=== PATIENT | male | born 1960 | race Hispanic/Latino ===

== ENCOUNTER 2020-12-23 18:50 | Emergency (ER) | payer BC ==
[~2020-12-23] VITALS: Ht 190.5 cm; Wt 88.5 kg
[2020-12-23] MEDS ORDERED: ACETAMINOPHEN 325 MG TAB PO ONE ×2 (19:45)
[2020-12-23] MEDS ORDERED: SODIUM CHLORIDE 0.9% 1000ML 1,000 ML IV ONE (19:45)
[2020-12-23] MEDS ORDERED: ACETAMINOPHEN 325 MG TAB ONE (19:50)
[2020-12-23] MEDS ORDERED: SODIUM CHLORIDE 0.9% 1000ML 1,000 ML ONE (19:55)
[2020-12-23 19:57] LABS: BASOPHILS % 0.3 % (0.0-1.0); HEMOGLOBIN 14.7 g/dL (14.0-18.0); LYMPHOCYTES # (AUTO) 0.7 (1.0-3.2); LYMPHOCYTES % 20.4 % (18.0-39.1); MEAN CORPUSCULAR HEMOGLOBIN 30.3 pg (28-32); MEAN CORPUSCULAR HGB CONC 33.4 g/dL (31-35); MEAN CORPUSCULAR VOLUME 90.7 fL (81-99); MONOCYTES # (AUTO) 0.5 (0.2-0.8); MONOCYTES % 14.9 % (4.4-11.3); NEUTROPHILS # (AUTO) 2.2 (2.1-6.9); NEUTROPHILS % 63.8 % (38.7-80.0); PLATELET COUNT 143 x10e3/uL (140-360); RED BLOOD COUNT 4.85 x10e6/uL (4.3-5.7); RED CELL DISTRIBUTION WIDTH 11.9 % (11.7-14.4)
[2020-12-23 20:14] LABS: ANION GAP 14.2 mmol/L (8-16); CALCIUM 8.6 mg/dL (8.4-10.2); CREATININE, SERUM 1.05 mg/dL (0.72-1.25); POTASSIUM 4.2 mmol/L (3.5-5.1)
[2020-12-23] MEDS ORDERED: BAMLANIVIMAB / ETESEVIMAB 2,100 MG in SODIUM CHLORIDE 0.9% 250ML 250 ML IV ONE (20:15)
[2020-12-23 23:17] VITALS: BP 101/65
== END 2020-12-23 23:18 | disposition home or self-care (01) ==
LOC: ER 19:43
DX: R50.9 Fever, unspecified (principal); U07.1 COVID-19; J12.82 Pneumonia due to coronavirus disease 2019; R05 Cough
CPT/HCPCS: 36415; 71045; 80048; 85025; 99284; J7030; J7050